=== PATIENT | male | born 1985 | race American Indian/Alaskan Native ===

== ENCOUNTER 2019-08-23 16:03 | Emergency (ER) | payer SELFPAY ==
[2019-08-23 16:09] VITALS: BP 143/83
--- NOTE | 2019-08-23 16:51 | Emergency Department Report ---
Chief Complaint: Back Pain/Injury Stated Complaint: BACK PAIN Time Seen by Provider: 08/23/19 16:46 - HPI History of Present Illness: 34-year-old -Spanish male presents to the emergency room for 5-day history of heavy lifting. Patient reports he took Goody powder last dose on Saturday. Patient denies any direct injury mechanism of action. No urinary or bowel incontinence. - Exam Vital Signs: Vital Signs 08/23/19 16:06 Temperature 99 F Pulse Rate 90 Respiratory 16 Rate Blood Pressure 143/83 O2 Sat by Pulse 98 Oximetry Physical Exam: Gen: alert oriented NAD Cardic: regular rate and rhythm no murmurs appreciated Resp: Clear to auscultation bilateral no wheezing no rales or rhonchi. Abdomen: Soft nontender nondistended normal bowel sounds. Mini neuro: Normal finger to nose exam, [id number] normal, Romberg neg, strengh 4/5 all extrimities, Alert and oriented time 3 Crainal nerve II-[id number] intact MSE screening note: Focused history and physical exam performed. Due to findings the following was ordered: 34-year-old -Spanish male presents to the emergency room for 5-day history of heavy lifting. Patient reports he took Goody powder last dose on Saturday. Patient denies any direct injury mechanism of action. No urinary or bowel incontinence. Please take ibuprofen or Tylenol for pain management. Increase your fluid intake avoid lifting heavy objects every irritate your back. ED Disposition for MSE Disposition: MED SCREENING EXAM-LEFT Is pt being admited?: No Does the pt Need Aspirin: No Condition: Stable Additional Instructions: Please take ibuprofen or Tylenol for pain management. Increase your fluid intake avoid lifting heavy objects every irritate your back. Referrals: ANA BARRY MD [Staff Physician] - 3-5 Days Forms: Work/School Release Form(ED)
== END 2019-08-23 17:13 | disposition left against medical advice (07) ==
LOC: ED 16:03
DX: M54.6 Pain in thoracic spine (principal); Z53.21 Procedure and treatment not carried out due to patient leaving prior to being seen by health care provider
CPT/HCPCS: 99282

== ENCOUNTER 2021-12-11 23:24 | Emergency (ER) | payer SELFPAY ==
[2021-12-11] MEDS ORDERED: IBUPROFEN 800 MG TAB PO ONE (23:48)
[2021-12-12] MEDS ORDERED: LIDOCAINE VISCOUS 2% 15 ML ORAL LIQD PO ONE (05:21)
[2021-12-12] MEDS ORDERED: ACETAMINOPHEN 500 MG TAB PO ONE (05:21)
--- NOTE | 2021-12-12 05:38 | Emergency Department Report ---
ED ENT HPI - General Chief complaint: Dental/Oral Stated complaint: TOOTHACHE Time Seen by Provider: 12/12/21 04:46 Source: patient Mode of arrival: Ambulatory Limitations: No Limitations - History of Present Illness MD complaint: tooth pain -: Gradual Location: tooth # Severity: moderate Quality: dull Consistency: constant Improves with: none, pressure Worsens with: eating Context- Dental: history of dental caries, poor dental care Associated Symptoms: toothache, sore throat - Related Data Previous Rx's Medication Instructions Recorded Last Taken Type Amoxicillin [Amoxicillin TAB] 875 mg PO BID #20 tablet 12/12/21 Unknown Rx Ketorolac [Toradol] 10 mg PO Q6H PRN #15 tablet 12/12/21 Unknown Rx Lidocaine Viscous 2% 5 ml MM Q3H PRN #120 udc 12/12/21 Unknown Rx Allergies Allergy/AdvReac Type Severity Reaction Status Date / Time No Known Allergies Allergy Verified 12/12/21 05:50 ED Dental HPI - General Chief complaint: Dental/Oral Stated complaint: TOOTHACHE Time Seen by Provider: 12/12/21 04:46 Source: patient Mode of arrival: Ambulatory Limitations: No Limitations - Related Data Previous Rx's Medication Instructions Recorded Last Taken Type Amoxicillin [Amoxicillin TAB] 875 mg PO BID #20 tablet 12/12/21 Unknown Rx Ketorolac [Toradol] 10 mg PO Q6H PRN #15 tablet 12/12/21 Unknown Rx Lidocaine Viscous 2% 5 ml MM Q3H PRN #120 udc 12/12/21 Unknown Rx Allergies Allergy/AdvReac Type Severity Reaction Status Date / Time No Known Allergies Allergy Verified 12/12/21 05:50 ED Review of Systems ROS: Stated complaint: TOOTHACHE Other details as noted in HPI Comment: All other systems reviewed and negative ED Past Medical Hx - Past Medical History Previous Medical History?: Yes - Surgical History Past Surgical History?: Yes - Social History Smoking Status: Unknown if ever smoked - Medications Home Medications: Home Medications Medication Instructions Recorded Confirmed Last Taken Type Amoxicillin [Amoxicillin TAB] 875 mg PO BID #20 tablet 12/12/21 Unknown Rx Ketorolac [Toradol] 10 mg PO Q6H PRN #15 tablet 12/12/21 Unknown Rx Lidocaine Viscous 2% 5 ml MM Q3H PRN #120 udc 12/12/21 Unknown Rx ED Physical Exam - General Limitations: No Limitations General appearance: alert, in no apparent distress - Head Head exam: Present: atraumatic, normocephalic - Eye Eye exam: Present: normal appearance - ENT ENT exam: Present: mucous membranes moist, other (Dental caries noted. Tenderness to the right lower molar region with some adjacent gingival erythema. No abscess noted.) - Neck Neck exam: Present: normal inspection - Respiratory Respiratory exam: Present: normal lung sounds bilaterally. Absent: respiratory distress - Cardiovascular Cardiovascular Exam: Present: regular rate, normal rhythm. Absent: systolic murmur, diastolic murmur, rubs, gallop - GI/Abdominal GI/Abdominal exam: Present: soft, normal bowel sounds - Rectal Rectal exam: Present: deferred - Extremities Exam Extremities exam: Present: normal inspection - Back Exam Back exam: Present: normal inspection - Neurological Exam Neurological exam: Present: alert, oriented X3 - Psychiatric Psychiatric exam: Present: normal affect, normal mood - Skin Skin exam: Present: warm, dry, intact, normal color. Absent: rash ED Course Vital Signs 12/11/21 23:47 Temperature 102.6 F H Pulse Rate 103 H Respiratory 18 Rate Blood Pressure 152/90 O2 Sat by Pulse 97 Oximetry Critical care attestation.: If time is entered above; I have spent that time in minutes in the direct care of this critically ill patient, excluding procedure time. ED Disposition Clinical Impression: Infected dental caries Disposition: HOME / SELF CARE / HOMELESS Is pt being admited?: No Does the pt Need Aspirin: No Condition: Stable Instructions: Dental Abscess
[2021-12-12 09:42] VITALS: BP 132/78
== END 2021-12-12 09:41 | disposition home or self-care (01) ==
LOC: ED 23:24
DX: K04.7 Periapical abscess without sinus (principal)
CPT/HCPCS: 99282